=== PATIENT | female | born 1945 | race African-American/Black ===

== ENCOUNTER → 2016-07-24 | Outpatient (CLI) | payer MEDICARE, BC ==
[~2016-07-24] MED LIST: BENICAR PO; CALCIUM + VITA1 EACH PO; ECOTRIN325 MG PO; GARLIC1 CAP PO; JANUMET 50-1,1 UDTAB PO; MAGNESIUM100 MG PO; MELOXICAM15 MG PO; MULTIVITAMINS1 EAC2 PO; OMEPRAZOLE20 M1 PO; VITAMIN B COMPLEX; VITAMIN D35000 UNI1 PO
--- NOTE | ~2016-07-24 | MY11 ---
[facility] A Service of [facility] RADIOLOGY TEXT RESULTS PATIENT: DEVYN NATARAJAN LOCATION: [facility] : 41 UNIT #: [id number] AGE: [address]: JAIDEN MEANS MD SEX: F ORDER DR: [id number] [facility]. [place], [place] [address] [id number] O MR#: [id number] Acc #: [id number] NAME: DEVYN NATARAJAN : 1945 SEX: F STUDY DATE/TIME: 07/24/2016 10:19 UNIT: [facility] ROOM: STUDY DESCRIPTION: MY Mammogram Screening Dig Rikki Attending Physician: Jaiden Means M.D. Referring Physician: Jaiden Means M.D. Ordering Physician: Jaiden Means M.D. Primary Care Physician: Jaiden Means M.D. MEDICAL IMAGING REPORT This report is preliminary unless electronic signature is present EXAM Bilateral Digital Screening Mammogram with CAD INDICATION Breast cancer screening. 70-year-old asymptomatic female. No personal or family history of breast cancer. COMPARISON Outside mammograms performed at [address], [address] dated December 13, 2014. FINDINGS There are scattered fibroglandular tissues. No suspicious findings are present. IMPRESSION No mammographic evidence of malignancy. Annual screening mammography and clinical breast exam are recommended. A result letter will be sent to the patient. Patients over the age of 40 are entered into a reminder system with target due date for the next mammogram. BIRADS: 1 Negative Dictated by... Raphael Medellin M.D. THIS IS AN ELECTRONICALLY VERIFIED REPORT Raphael Medellin M.D. at 07/27/2016 5:28 PM [facility] A Service of [facility] RADIOLOGY TEXT RESULTS PATIENT: DEVYN NATARAJAN LOCATION: [facility] : 41 UNIT #: [id number] AGE: [address]: JAIDEN MEANS MD SEX: F ORDER DR: TD: 07/27/2016 11:25 JOB #: [id number] MEDICAL IMAGING REPORT Page 1 of 1 COPY
== END | disposition home or self-care (01) ==
LOC: CWCC 09:59
DX: Z12.31 Encounter for screening mammogram for malignant neoplasm of breast (principal)
CPT/HCPCS: G0202

== ENCOUNTER → 2016-11-25 | Outpatient (CLI) | payer MEDICARE, BC ==
--- NOTE | ~2016-11-25 | CR173 ---
[facility] A Service of [facility] RADIOLOGY TEXT RESULTS PATIENT: DEVYN NATARAJAN LOCATION: [facility] : 43 UNIT #: [id number] AGE: [address]: JAIDEN MEANS MD SEX: F ORDER DR: [id number] [facility] [address] [facility] [place], [place] [address] [id number] O MR#: [id number] Acc #: [id number] NAME: DEVYN NATARAJAN : 1945 SEX: F STUDY DATE/TIME: 11/25/2016 11:09 UNIT: [facility] ROOM: STUDY DESCRIPTION: CR Knee 3 Views Rt Attending Physician: Jaiden Means M.D. Referring Physician: Jaiden Means M.D. Ordering Physician: Jaiden Means M.D. Primary Care Physician: Jaiden Means M.D. MEDICAL IMAGING REPORT This report is preliminary unless electronic signature is present EXAM Right knee, 11/25/2016 HISTORY 71-year-old female with right knee pain for 2 weeks. COMPARISON None. FINDINGS Three views of the right knee demonstrate no acute fracture or dislocation. No significant joint effusion. [id number] degenerative change at the patellofemoral joint. Moderate medial compartment joint space narrowing and degenerative osteophyte formation. Soft tissues are unremarkable. IMPRESSION 1. No acute fracture or dislocation. 2. Moderate patellofemoral and medial compartment arthrosis. Dictated by... Brian Marquez M.D. THIS IS AN ELECTRONICALLY VERIFIED REPORT Brian Marquez M.D. at 11/26/2016 5:55 AM JANELLE/bryanna TD: 11/25/2016 20:10 JOB #: [id number] MEDICAL IMAGING REPORT Page 1 of 1 COPY
== END | disposition home or self-care (01) ==
LOC: CRAD 10:50
DX: M25.561 Pain in right knee (principal); M17.11 Unilateral primary osteoarthritis, right knee
CPT/HCPCS: 73562